=== PATIENT | male | born 1990 | race American Indian/Alaskan Native ===

== ENCOUNTER 2025-05-29 07:40 | Day surgery (SDC) | payer BC, OTHER ==
[~2025-05-29] VITALS: Ht 172.7 cm; Wt 79.0 kg
[~2025-05-29 07:40] MED LIST: IBLOOD GLUCOSE TEST STRIP 1 EA TEST VI PRN; LACTATED RINGER'S 1,000 ML IV SCH; LIDOCAINE HCL 1% 5 ML SDV INJ ONE; SYMBICORT 80-10.2 GM INH; VALTREX1000 MG PO; VENTOLIN HFA18 GM INH; ZYRTEC10 M3 PO
[2025-05-29 08:15] VITALS: BP 125/79
[2025-05-29] MEDS ORDERED: TYLENOL325 MG PO (08:18)
[2025-05-29] MEDS ORDERED: LIDOCAINE HCL 2% 5 ML SDV ONE (09:21)
--- NOTE | 2025-05-29 10:10 | NUR ---
05/29/25 1010 Eunice Mitchell 0950-PATIENT ARRIVED TO PACU ON 6L MASK NOANROUSABLE RR EVEN. ORAL AIRWAY IN PLACE. ABDOMEN SOFT IVF INFUSING. SR HR 70'S 1005-PATIENT REMAINS NONAROUSABLE 6L MASK RR EVEN ORAL AIRWAY IN PLACE. SR
[2025-05-29 11:23] VITALS: BP 132/87
[2025-05-29 11:24] VITALS: BP 134/95
--- NOTE | 2025-05-29 11:25 | NUR ---
1120- REPORT RECIEVED FROM REGIONAL OPERATIONS MANAGER. PAIN AND VITALS NOTED. NO N/V. PT PAIN WAS 6-7/10 IN PACU. PT REPORTS FEELING BETTER BUT STILL UNCOMFORTABLE. FAMILY NOTIFIED. NO FURTHER NEEDS AT THIS TIME. CALL LIGHT IN REACH.
--- NOTE | 2025-05-29 13:33 | NUR ---
1147- PT EDUCATION FOR DC PROVIDED, PT VERBALIZED UNDERSTANDING. PT DRESSED SELF WITHOUT ISSUE AND AMBULATED TO WHEELCHAIR WITHOUT ASSISTANCE. PT AMBULATED SELF TO CAR WITHOUT ISSUE.
== END 2025-05-29 11:47 | disposition home or self-care (01) ==
LOC: OPS 07:40 → DS 07:40 → OPS 09:00 → DS 12:00 → OPS 13:15 → DS 13:15
PROVIDERS: ATTEND Surgery
PROC: 0DJD8ZZ Inspection of Lower Intestinal Tract, Via Natural or Artificial Opening Endoscopic (ICD-10-PCS; principal; 2025-05-29 09:00)
DX: K92.1 Melena (principal); K64.8 Other hemorrhoids; Z88.0 Allergy status to penicillin
CPT/HCPCS: 00811; J2003; J2704; J7121